=== PATIENT | female | born 1970 | race Caucasian/White ===

== ENCOUNTER → 2017-05-24 | Outpatient (CLI) | payer OTHER, BC ==
[~2017-05-24] MED LIST: DIPH-416 PO; FLUT0.15 NAE; GADAVIST IV PRN; IBUP-1050 PO; MOME110A INH
--- NOTE | 2017-05-24 08:51 | DIAGNOSTIC IMAGING REPORT ---
MRI THE PELVIS WITHOUT A WITH GADOLINIUM CLINICAL HISTORY: FIBROID UTERUS menorrhagia COMPARISON STUDY: No previous studies for comparison. FINDINGS: Imaging was performed in the sagittal axial and coronal planes, before and after the administration of 8 cc of intravenous Gadavist The endometrium measures 8 mm in diameter. There are several nabothian gland cyst present. No ovarian masses are visualized. There is an 8 cm left-sided uterine fibroid. There is no pathologic adenopathy. There are no suspicious areas of marrow replacement. IMPRESSION: 1. 8 cm left-sided uterine fibroid 2. No pathologic ovarian masses identified 3. No evidence of pathologic adenopathy Electronically signed by: Tomas Nuno M.D. 05/24/2017 8:50 AM Dictated Date/Time: 05/24/2017 8:45 AM
[2017-05-24 11:25] LABS: BLOOD UREA NITROGEN 9 mg/dl (7-18); CALCIUM 9.4 mg/dl (8.5-10.1); CARBON DIOXIDE 27 mmol/L (21-32); CHOLESTEROL 165 mg/dl (0-200); CREATININE 0.86 mg/dl (0.60-1.20); GLUCOSE 87 mg/dl (70-99); POTASSIUM 4.2 mmol/L (3.5-5.1); SODIUM 139 mmol/L (136-145)
[2017-05-24 11:35] LABS: LDL CHOLESTEROL CALCULATED 94 mg/dl
== END | disposition home or self-care (01) ==
LOC: C.MRIBC 07:29
PROVIDERS: ATTEND Obstetrics & Gynecology
DX: D25.9 Leiomyoma of uterus, unspecified (principal); Z87.42 Personal history of other diseases of the female genital tract; Z00.00 Encounter for general adult medical examination without abnormal findings

== ENCOUNTER → 2017-05-29 | Outpatient (CLI) | payer OTHER, BC ==
[~2017-05-29] MED LIST changes: -GADAVIST IV PRN
--- NOTE | 2017-05-30 08:02 | MAMMOGRAPHY REPORT ---
BILATERAL DIGITAL SCREENING MAMMOGRAM TOMOSYNTHESIS WITH CAD: 05/29/2017 CLINICAL HISTORY: Routine screening. Patient has no complaints. TECHNIQUE: Breast tomosynthesis in addition to standard 2D mammography was performed. Current study was also evaluated with a Computer Aided Detection (CAD) system. COMPARISON: Comparison is made to exams dated: 10/07/2015 ultrasound, 10/07/2015 mammogram, 11/10/2012 ultrasound, 11/10/2012 mammogram, 05/12/2012 mammogram, and 05/12/2012 ultrasound - [facility]. BREAST COMPOSITION: The tissue of both breasts is heterogeneously dense, which may obscure small mas ses. FINDINGS: No suspicious masses, calcifications, or areas of architectural distortion are noted in ei ther breast. There has been no significant interval change compared to prior exams. IMPRESSION: ACR BI-RADS CATEGORY 1: NEGATIVE There is no mammographic evidence of malignancy. A 1 year screening mammogram is recommended. The pa tient will receive written notification of the results. Approximately 10% of breast cancers are not detected with mammography. A negative mammographic report should not delay biopsy if a clinically suggestive mass is present. Neva Mcgill M.D. /:05/29/2017 09:13:27 Machine Stapler: Angi Kohler, [facility] letter sent: Normal 1/2 BI-RADS Code: ACR BI-RADS Category 1: Negative
== END | disposition home or self-care (01) ==
LOC: C.MAMM 08:35
PROVIDERS: ATTEND Internal Medicine
DX: Z12.31 Encounter for screening mammogram for malignant neoplasm of breast (principal)

== ENCOUNTER 2019-08-28 21:43 | Observation (INO) ==
[2019-08-28] MEDS ORDERED: MoRPHine SULFATE 4 MG/ML 1 ML CARP\\VIAL IV STA (22:31)
[2019-08-28] MEDS ORDERED: ONDANSETRON INJ 2 MG/ML 2 ML VIAL IV STA (22:31)
--- NOTE | 2019-08-28 22:37 | Emergency Department Note ---
History of Present Illness General Chief complaint: Pain (Generalized) Stated complaint: ABD PAIN, NECK PAIN, SHOULDER PAIN Time Seen by Provider: 08/28/19 22:23 History of Present Illness This is a 41-year-old female presenting to the emergency department for evaluation of right shoulder and right upper quadrant abdominal pain. The patient states that she ate dinner around 6 PM, including ribs, Maori fries, and spaghetti. Around 630pm she started having a spasm-like sensation in her right side neck into her right side shoulder. This has persisted throughout the past 3 to 4 hours, and now includes right upper quadrant abdominal/right lower chest wall pain. The patient considers herself usually healthy with past abdominal surgery for colectomy following ulcerative colitis. She is on control. The patient does not report having a fever at home. No nausea or vomiting. She rates her current discomfort a 6/10, crampy, nonradiating. Home Medications Home Medications Medication Instructions Recorded Confirmed Type norethindrone acetate 5 mg tablet 5 mg PO DAILY 05/13/19 08/28/19 History diphenoxylate-atropine 2.5 See Rx Instructions .ROUTE 05/14/19 08/28/19 Rx mg-0.025 mg tablet .COMPLEX PRN #300 tab buspirone 10 mg tablet 10 mg PO TID PRN #270 tab 08/03/19 08/28/19 Rx escitalopram oxalate 10 mg tablet 10 mg PO DAILY #90 tab 08/05/19 08/28/19 Rx mometasone [Asmanex Twisthaler] 1 inh INHALATION Q12H 08/28/19 08/28/19 History Allergies Allergy/AdvReac Type Severity Reaction Status Date / Time Cephalosporins Allergy Mild RASH Verified 08/28/19 23:15 Cipro Allergy Unknown hives Verified 02/05/16 14:02 ciprofloxacin Allergy Unknown hives Verified 08/28/19 23:15 metronidazole Allergy Unknown UNKNOWN Unverified 08/28/19 23:15 Penicillins Allergy Unknown Unknown Verified 08/28/19 23:15 Past Med/Surg History Medical History Chronic diarrhea (Chronic) Precordial chest pain (Inactive) Uterine fibroid (Chronic) Surgical History History of colectomy History of colonoscopy History of sigmoidoscopy History of tonsillectomy History of tubal ligation Family History (Updated 05/14/19 @ 10:01 by Zulay Lewis) Grandmother (Maternal) Breast cancer Grandmother (Paternal) Diabetes Grandfather (Maternal) Myocardial infarction Social History (Updated 05/14/19 @ 10:02 by Zulay Lewis) marital status: Current Living Situation: Spouse and Family Current Living Situation Comment: 2 boys current occupational status: employed Feels Safe at Home: Yes Smoking Status: Never smoker Hx Alcohol Use: Yes Alcohol Intake Frequency: Holidays/Special Occasions Hx Substance Use: No Dental Care, Regularly: Yes Physical Activity Frequency: 5-6 Times per Week Seatbelt Use: always Sunscreen Use: Yes Review of Systems A total of 10 systems reviewed and were otherwise negative Physical Exam Vital Signs Vital Signs - 24 hr 08/28/19 21:44 08/28/19 23:43 08/29/19 02:28 Temperature 37.6 C H Temperature Source Oral Pulse Rate 107 H Pulse Rate [Right Finger] 93 H Respiratory Rate 22 16 Respiratory Effort / Characteristics Non-Labored Spontaneous Respiratory Depth Normal Respiratory Pattern Regular Blood Pressure 143/87 H Blood Pressure [Right Arm] 144/87 H 133/71 Blood Pressure Mean 105 Blood Pressure Mean [Right Arm] 106 91 Blood Pressure Position Sitting Blood Pressure Position [Right Arm] Lying Pulse Oximetry 96 97 Oxygen Delivery Method Room Air Room Air Sepsis Recent Fever Within 48 Hours Yes Sepsis New/Unexplained Change in Mental Status No Sepsis Action Taken by Nursing No Action Required 08/29/19 04:00 Temperature Temperature Source Pulse Rate Pulse Rate [Right Finger] Respiratory Rate Respiratory Effort / Characteristics Respiratory Depth Respiratory Pattern Blood Pressure Blood Pressure [Right Arm] 117/70 Blood Pressure Mean Blood Pressure Mean [Right Arm] 85 Blood Pressure Position Blood Pressure Position [Right Arm] Pulse Oximetry 97 Oxygen Delivery Method Room Air Sepsis Recent Fever Within 48 Hours Sepsis New/Unexplained Change in Mental Status Sepsis Action Taken by Nursing VITALS: Vitals are noted on the nurse's note and reviewed by myself. Vital signs stable. GENERAL: Well-developed, well-nourished, white female who appears moderately uncomfortable on presentation HEAD: Normocephalic atraumatic. EARS: External ear normal. External auditory canals clear, tympanic membranes pearly you without erythema or effusion bilaterally. EYES: Pupils equal round and reactive to light and accommodation. Conjunctivae without injection, sclerae without icterus. Extraocular movements intact. NOSE: Patent, turbinates without inflammation or discharge. MOUTH: Mucous membranes moist. Tonsils are not enlarged. Pharynx without erythema, blood, or exudate. Uvula midline. Airway patent. NECK: Supple without nuchal rigidity. No lymphadenopathy. No thyromegaly. Cervical spine is nontender. HEART: Regular rate and rhythm without murmurs gallops or rubs. LUNGS: Clear to auscultation bilaterally without wheezes, rales or rhonchi. No retractions or accessory muscle use. ABDOMEN: Positive normal bowel sounds x 4. Soft with mild upper quadrant tenderness on palpation. No CVA tenderness. No rebound or guarding. MUSCULOSKELETAL: No muscle atrophy, erythema, or edema noted. Full range of motion in all extremities. SKIN: The skin was without rashes, erythema, edema, or bruising. Capillary refill less than 2 seconds. No rash in area of reported discomfort. Course Administered Medications Ioversol (Optiray 320 125ml) 119 ml IV ONCE PRN PRN Reason: Interaction Checking Stop: 09/02/19 02:12 Last Admin: 08/29/19 02:13 Dose: 119 ml Documented by: [id number] Discontinued Medications Sodium Chloride (Nss 1000ml) 1,000 mls @ 999 mls/hr IV .Q1H1M MALI Stop: 08/28/19 23:45 Last Infusion: 08/28/19 23:55 Dose: 0 mls/hr Documented by: [id number] Admin: 08/28/19 22:48 Dose: 999 mls/hr Documented by: [id number] Morphine Sulfate (Morphine Sulfate) 4 mg IV NOW STA Stop: 08/28/19 22:32 Last Admin: 08/28/19 22:47 Dose: 4 mg Documented by: [id number] Ondansetron HCl (Zofran) 4 mg IV NOW STA Stop: 08/28/19 22:32 Last Admin: 08/28/19 22:47 Dose: 4 mg Documented by: [id number] Critical Care Time I have personally spent greater than 38 minutes of critical care time in the direct management of this patient. This includes bedside care, interpretation of diagnostic studies, and testing, discussion with consultants, patient, and family members, and other required patient management activities. This 38 min utes is in excess of all separately billable procedures. Medical Decision Making Differential Diagnosis Differential diagnosis: Etiologies such as biliary colic, cholecystitis, hepatitis, pancreatitis, cardiac disease, pancreatitis, gastritis, peptic ulcer disease, appendicitis, cystitis, diverticulitis, mesenteric ischemia, inflammatory bowel disease, ileus, bowel obstruction, testicular/adnexal torsion, aortic pathology, shingles, as well as others were considered Laboratory Data Result diagrams: 08/28/19 22:40 08/28/19 22:40 Lab Results 08/28/19 08/28/19 08/28/19 Range/Units 22:40 22:40 22:40 WBC 13.04 H (4.8-10.8) K/uL RBC 4.67 (4.2-5.4) M/uL Hgb 14.5 (12.0-16.0) g/dL Hct 42.1 (37-47) % MCV 90.1 (80-100) fL MCH 31.0 (25-34) pg MCHC 34.4 (32-36) g/dL RDW Std Deviation 42.5 (36.4-46.3) fL RDW Coeff of Susi 13.0 (11.5-14.5) % Plt Count 255 (130-400) K/uL MPV 9.9 (7.4-10.4) fL Immature Gran % (Auto) 0.4 % Neut % (Auto) 80.0 % Lymph % (Auto) 11.2 % [place] % (Auto) 7.4 % Eos % (Auto) 0.8 % Baso % (Auto) 0.2 % Immature Gran # (Auto) 0.05 H (0.00-0.02) K/uL Neut # (Auto) 10.45 H (1.4-6.5) K/uL Lymph # (Auto) 1.46 (1.2-3.4) K/uL [place] # (Auto) 0.96 H (0.11-0.59) K/uL Eos # (Auto) 0.10 (0-0.5) K/uL Baso # (Auto) 0.02 (0-0.2) K/uL PT INR APTT PTT Ratio Sodium 137 (136-145) mmol/L Potassium 3.5 (3.5-5.1) mmol/L Chloride 104 (98-107) mmol/L Carbon Dioxide 28 (21-32) mmol/L Anion Gap 5.0 (3-11) BUN 17 (7-18) mg/dl Creatinine 1.25 H (0.6-1.2) mg/dl Est Cr Clr Drug Dosing 59.9 ml/min Est GFR ( Amer) 58.9 Est GFR (Non-Af Amer) 50.8 BUN/Creatinine Ratio 13.8 (10-20) Glucose 109 H (70-99) mg/dl Calcium 9.2 (8.5-10.1) mg/dl Total Bilirubin 0.4 (0.2-1) mg/dl AST 11 L (15-37) U/L ALT 27 (12-78) U/L Alkaline Phosphatase 78 (45-117) U/L Troponin I < 0.015 (0-0.045) ng/ml Total Protein 7.9 (6.4-8.2) gm/dl Albumin 3.7 (3.4-5.0) gm/dl Globulin 4.1 H (2.5-4.0) gm/dl Albumin/Globulin Ratio 0.9 (0.9-2) Lipase 121 (73-393) U/L Urine Color Yellow Urine Appearance Cloudy A (Clear) Urine pH 7.5 (4.5-7.5) Ur Specific [place] 1.026 (1.000-1.030) Urine Protein Negative (Negative) Urine Glucose (UA) Negative (Negative) Urine Ketones Trace H (Negative) Urine Blood Negative (Negative) Urine Nitrite Negative (Negative) Urine Bilirubin Negative (Negative) Urine Urobilinogen Negative (Negative) Ur Leukocyte Esterase 1+ H (Negative) Urine WBC (Auto) 5-10 H (0-5) /hpf Urine RBC (Auto) 5-10 H (0-4) /hpf U Hyaline Cast (Auto) 1-5 (0-5) /lpf U Epithel Cells (Auto) >30 H (0-5) /lpf Urine Bacteria (Auto) 1+ H (Negative) Influenza Type A (PCR) (Neg) Influenza Type B (PCR) (Neg) 08/28/19 08/29/19 Range/Units 22:40 01:46 WBC (4.8-10.8) K/uL RBC (4.2-5.4) M/uL Hgb (12.0-16.0) g/dL Hct (37-47) % MCV (80-100) fL MCH (25-34) pg MCHC (32-36) g/dL RDW Std Deviation (36.4-46.3) fL RDW Coeff of Susi (11.5-14.5) % Plt Count (130-400) K/uL MPV (7.4-10.4) fL Immature Gran % (Auto) % Neut % (Auto) % Lymph % (Auto) % [place] % (Auto) % Eos % (Auto) % Baso % (Auto) % Immature Gran # (Auto) (0.00-0.02) K/uL Neut # (Auto) (1.4-6.5) K/uL Lymph # (Auto) (1.2-3.4) K/uL [place] # (Auto) (0.11-0.59) K/uL Eos # (Auto) (0-0.5) K/uL Baso # (Auto) (0-0.2) K/uL PT Cancelled INR Cancelled APTT Cancelled PTT Ratio Cancelled Sodium (136-145) mmol/L Potassium (3.5-5.1) mmol/L Chloride (98-107) mmol/L Carbon Dioxide (21-32) mmol/L Anion Gap (3-11) BUN (7-18) mg/dl Creatinine (0.6-1.2) mg/dl Est Cr Clr Drug Dosing ml/min Est GFR ( Amer) Est GFR (Non-Af Amer) BUN/Creatinine Ratio (10-20) Glucose (70-99) mg/dl Calcium (8.5-10.1) mg/dl Total Bilirubin (0.2-1) mg/dl AST (15-37) U/L ALT (12-78) U/L Alkaline Phosphatase (45-117) U/L Troponin I (0-0.045) ng/ml Total Protein (6.4-8.2) gm/dl Albumin (3.4-5.0) gm/dl Globulin (2.5-4.0) gm/dl Albumin/Globulin Ratio (0.9-2) Lipase (73-393) U/L Urine Color Urine Appearance (Clear) Urine pH (4.5-7.5) Ur Specific [place] (1.000-1.030) Urine Protein (Negative) Urine Glucose (UA) (Negative) Urine Ketones (Negative) Urine Blood (Negative) Urine Nitrite (Negative) Urine Bilirubin (Negative) Urine Urobilinogen (Negative) Ur Leukocyte Esterase (Negative) Urine WBC (Auto) (0-5) /hpf Urine RBC (Auto) (0-4) /hpf U Hyaline Cast (Auto) (0-5) /lpf U Epithel Cells (Auto) (0-5) /lpf Urine Bacteria (Auto) (Negative) Influenza Type A (PCR) Neg for Influ A (Neg) Influenza Type B (PCR) Neg for Influ B (Neg) Imaging Data Radiologist's Impression: Preliminary Findings Only See Final Report For Complete Findings US GALLBLADDER: Limited visualization of the pancreas. Underdistended or contracted gallbladder with apparent mild wall thickening. No gallstones. No biliary ductal dilatation. Negative sonographic Rilye's sign. Preliminary Findings Only See Final Report For Complete Findings CT ABDOMEN & PELVIS Without Contrast: Trace right pleural fluid/pleural thickening. Mild ground glass opacities at the right lung base. Could be from pneumonia or pulmonary infarct. CTA of the chest can further assess if clinically appropriate No radiodense gallstones or pancreatitis. No renal calculi or obstructive changes. Previous bowel surgery. Nonobstructive bowel gas pattern. Appendix not identified. 7.2 cm solid-appearing mass lesion left lower pelvis, could be an exophytic fibroid or adnexal mass lesion. Preliminary Findings Only See Final Report For Complete Findings CT CHEST With Contrast: Study is positive for bilateral small pulmonary emboli predominantly to the lung bases. Trace right pleural effusion and pulmonary infarct. Nodular infiltrate in right upper lobe. ECG Data Attestation: I personally reviewed and interpreted this ECG as follows: Indication: + abdominal pain Additional Comments: Normal sinus rhythm @[address] elevation or ectopy Normal ECG When compared with ECG of 05-FEB-2016 14:06, No significant change was found MDM Narrative Physical exam and history were performed. Nursing notes, EMR, and Medication List were personally reviewed. Patient appears to have right side shoulder and neck pain, as well as right side upper abdominal discomfort. Her symptoms seem to correlate with diaphragmatic irritation, and her initial presentation was concern for her gallbladder. She is minimally febrile but with tachycardia on vitals. IV access was established and labs were obtained. The patient was given IV fluids, IV morphine, and IV Zofran for comfort. She was made n.p.o. The patient's blood work is as above and was reviewed. She has a minimally elevated white blood cell count of 13,000. She does not have a significant anemia, bandemia, or gross electrolyte imbalance. Lipase and transaminases are not diagnostic. Urine is with esterase and bacteria, with culture pending. Of note she is currently without any UTI symptoms. Influenza swab was performed an d negative. The patient's ultrasound was reviewed by myself and radiology. They had difficulty fully identifying the gallbladder on ultrasound, and there may be some mild wall thickening. Because of concern of another etiology I did elect for CT scan of the abdomen and pelvis. CT of the abdomen and pelvis was also reviewed, and did not see findings in the area to explain her symptoms within th e belly. The lower lung mai on the abdomen and pelvis CT are concerning for possible pulmonary etiology. CT angiogram of the chest was then performed, and does reveal multiple bilateral peripheral pulmonary emboli. This does seem to coincide with her symptoms and would explain the diaphragmatic irritation concern. The patient does not seem to have any history herself to put her at high risk for pulmonary emboli. She is on control. Evidently her mother had a PE, but this might have been provoked due to travel history. The patient was started on heparin bolus and drip here in the ER. The case was discussed with the on-call hospitalist who agreed to evaluate her here in the ER. Please see their dictation for further patient course, plan, and disposition. The chart was completed utilizing [employer] Speech Voice Recognition Software. Grammatical errors, random word insertions, pronoun errors, and incomplete sentences are an occasional consequence of this system due to software limitations, ambient noise, and hardware issues. Any formal questions or concerns about the content, text, or information contained within the body of this dictation should be directly addressed to the provider for clarification. . Impression & Plan Bilateral pulmonary embolism Discharge Plan Visit Data Chief Complaint: Pain (Generalized) Stated Complaint: ABD PAIN, NECK PAIN, SHOULDER PAIN ED Provider: [facility] ED Midlevel Provider: Flip Pena Discharge Problem: Bilateral pulmonary embolism Forms Stand Alone Forms: My [facility] Prescriptions Prescriptions: No Action buspirone 10 mg tablet 10 mg PO TID PRN (Reason: anxiety) Qty: 270 RF: 3 escitalopram oxalate 10 mg tablet 10 mg PO DAILY Qty: 90 RF: 3 norethindrone acetate 5 mg tablet 5 mg PO DAILY RF: 0 diphenoxylate-atropine 2.5-0.025 mg tablet See Rx Instructions .ROUTE .COMPLEX PRN (Reason: diarrhea) Qty: 300 RF: 5 Asmanex Twisthaler 220 mcg/ actuation (60) Aerosol Powdr Breath Activated 1 inh INHALATION Q12H RF: 0 Referrals Referrals: Blaine Jennings MD [Primary Care Provider] -
[2019-08-28] MEDS ORDERED: SODIUM CHLORIDE 0.9% 1000ML 1,000 ML IV SCH (22:45)
[2019-08-28 22:49] LABS: Basophils # (auto) 0.02 K/uL (0-0.2); Basophils % (auto) 0.2 %; Eosinophils % (auto) 0.8 %; Hematocrit (blood only) 42.1 % (37-47); Hemoglobin 14.5 g/dL (12.0-16.0); Immature Granulocytes # (auto) 0.05 K/uL (0.00-0.02); Immature Granulocytes % (auto) 0.4 %; Lymphocytes # (auto) 1.46 K/uL (1.2-3.4); Lymphocytes % (auto) 11.2 %; Mean Corpuscular Hgb Conc 34.4 g/dL (32-36); Mean Corpuscular Volume 90.1 fL (80-100); Mean Platelet Volume 9.9 fL (7.4-10.4); Monocytes # (auto) 0.96 K/uL (0.11-0.59); Monocytes % (auto) 7.4 %; Neutrophils # (auto) 10.45 K/uL (1.4-6.5); Platelet Count 255 K/uL (130-400); RDW Standard Deviation 42.5 fL (36.4-46.3); Red Blood Count 4.67 M/uL (4.2-5.4); White Blood Count 13.04 K/uL (4.8-10.8)
[2019-08-28 22:52] LABS: Appearance Urine Cloudy (Clear); Bacteria Urine Automated 1+ (Negative); Bilirubin Urine Negative (Negative); Blood Urine Negative (Negative); Color Urine Yellow; Epithelial Cell Urine Auto >30 /lpf (0-5); Glucose Urine UA Negative (Negative); Ketones Urine Trace (Negative); Leukocyte Esterase Urine 1+ (Negative); Nitrite Urine Negative (Negative); Protein Urine Negative (Negative); Specific Gravity Urine 1.026 (1.000-1.030); Urobilinogen Urine Negative (Negative); pH Urine 7.5 (4.5-7.5)
[2019-08-28 23:10] LABS: Alanine Aminotransferase 27 U/L (12-78); Albumin Level 3.7 gm/dl (3.4-5.0); Aspartate Aminotransferase 11 U/L (15-37); BUN Creatinine Ratio 13.8 (10-20); Blood Urea Nitrogen 17 mg/dl (7-18); Calcium 9.2 mg/dl (8.5-10.1); Carbon Dioxide 28 mmol/L (21-32); Chloride 104 mmol/L (98-107); Creatinine Clr Calc Pharmacy 59.9 ml/min; Est GFR (African American) 58.9; Est GFR (Non-African American) 50.8; Glucose 109 mg/dl (70-99); Lipase 121 U/L (73-393); Potassium 3.5 mmol/L (3.5-5.1); Sodium 137 mmol/L (136-145)
[2019-08-28 23:15] LABS: Albumin Globulin Ratio 0.9 (0.9-2); Alkaline Phosphatase 78 U/L (45-117); Bilirubin,Total 0.4 mg/dl (0.2-1); Globulin 4.1 gm/dl (2.5-4.0); Total Protein 7.9 gm/dl (6.4-8.2); Troponin I < 0.015 ng/ml (0-0.045)
[2019-08-29] MEDS ORDERED: OPTIRAY 320 125ml IV PRN (02:13)
[2019-08-29 02:33] LABS: Influenza A virus by PCR Neg for Influ A (Neg); Influenza B virus by PCR Neg for Influ B (Neg)
[2019-08-29] MEDS ORDERED: HEPARIN SODIUM/DEXTROSE 25,000 UNITS/500 ML BAG IV SCH (03:30)
[2019-08-29] MEDS ORDERED: Heparin BOLUS **ED Use Only IV STA (03:50)
--- NOTE | 2019-08-29 04:18 | History & Physical Report ---
Date of Service August 29, 2019 Assessment & Plan (1) Bilateral pulmonary embolism: Patient is a 49 year old female with PMHx of UC, Asthma, and Anxiety who presents with worsening R shoulder pain with deep inhalation, found to have bilateral PE's noted on CT. ED Course: Heparin Drip w/ bolus, Morphine 4mg IV, Zofran 4mg IV, NSS 1L bolus Bilateral Pulmonary Embolism -Chest CT showed B/L distal PE. Also of note is a Nodular infiltrate in the RUL, awaiting final read. -Likely provoked from use of oral contraceptives -No family history of DVT or PE's, minimal in patients history to suggest DVT formation via trauma or travel -Continue Heparin drip, will likely transition to a NOAC in AM -DC Oral contraceptive -B/L LE ultrasound ordered -Can consider further hypercoagulability work up in future if patient has another case of DVT or PE while off of OCP Uterine Fibroid -Noted as as 7.2 cm mass in the left lower pelvis on Ab/Pelv CT -Patient states that this has been a chronic and stable thing for her and that she was to have another ultrasound for it in the near future Anxiety -Continue Buspirone -Continue Lexapro Asthma -Continue Mometasone UC -Continue Lamotil PRN Dispo: Med/Surg Tele FEN: Regular Diet, NSS +20meqK 80ml/hr DVT: Heparin drip Code: Full (2) Situational anxiety: (3) Panic anxiety syndrome: (4) Uterine fibroid: (5) Ulcerative colitis: (6) Asthma: History of Present Illness Chief Complaint: Shoulder Pain Primary Care Provider: Blaine Jennings MD Patient is a 49 year old female with PMHx of UC, Asthma, and Anxiety who presents with worsening R shoulder pain with deep inhalation. Patient notes that her pain started earlier in the evening and had worsened over the past 3-4 hours. Patient describes the pain as a spasms in her R shoulder leading into the R side of her neck. She had used essential oils and heat without relief. Patient notes that she is a relatively healthy person, exercises regularly, and has only had abdominal surgery in the past secondary to her ulcerative colitis. Her only medications include Buspirone and Lexapro for her anxiety, Lamotil for her UC, Mometasone for her Asthma, and oral control for her menorrhagia. She states she had been taking control for roughly 2 years now. She also notes that she does note smoke or use drugs. She has an occasional drink. Minimal recent travel (2.5 hours to [place]) for the past 3 weeks. She does state that her mother had a PE in her 60's, but it was after she had been traveling by car for extended hours. Patient otherwise denies any family history of coagulopathies. Allergies Allergy/AdvReac Type Severity Reaction Status Date / Time Cephalosporins Allergy Mild RASH Verified 08/28/19 23:15 Cipro Allergy Unknown hives Verified 02/05/16 14:02 ciprofloxacin Allergy Unknown hives Verified 08/28/19 23:15 metronidazole Allergy Unknown UNKNOWN Unverified 08/28/19 23:15 Penicillins Allergy Unknown Unknown Verified 08/28/19 23:15 Home Medications Home Medications Medication Instructions Recorded Confirmed Type norethindrone acetate 5 mg tablet 5 mg PO DAILY 05/13/19 08/28/19 History diphenoxylate-atropine 2.5 See Rx Instructions .ROUTE 05/14/19 08/28/19 Rx mg-0.025 mg tablet .COMPLEX PRN #300 tab buspirone 10 mg tablet 10 mg PO TID PRN #270 tab 08/03/19 08/28/19 Rx escitalopram oxalate 10 mg tablet 10 mg PO DAILY #90 tab 08/05/19 08/28/19 Rx mometasone [Asmanex Twisthaler] 1 inh INHALATION Q12H 08/28/19 08/28/19 History Past Med/Surg History Medical History Chronic diarrhea (Chronic) Precordial chest pain (Inactive) Uterine fibroid (Chronic) Surgical History History of colectomy History of colonoscopy History of sigmoidoscopy History of tonsillectomy History of tubal ligation Family History (Updated 05/14/19 @ 10:01 by Zulay Lewis) Grandmother (Maternal) Breast cancer Grandmother (Paternal) Diabetes Grandfather (Maternal) Myocardial infarction Social History (Updated 05/14/19 @ 10:02 by Zulay Lewis) marital status: Current Living Situation: Spouse and Family Current Living Situation Comment: 2 boys current occupational status: employed Feels Safe at Home: Yes Smoking Status: Never smoker Hx Alcohol Use: Yes Alcohol Intake Frequency: Holidays/Special Occasions Hx Substance Use: No Dental Care, Regularly: Yes Physical Activity Frequency: 5-6 Times per Week Seatbelt Use: always Sunscreen Use: Yes Review of Systems Constitutional: no fever, no chills and no weakness Eyes: no worsening vision Ear, Nose, Mouth, Throat: no dizziness Respiratory: + pain on inspiration (R shoulder pain with deep inspiration ); no cough, no dyspnea and no dyspnea on exertion Cardiovascular: no chest pain, no dyspnea, no dyspnea at rest, no dyspnea on exertion, no palpitations and no lightheadedness Gastrointestinal: no abdominal pain, no nausea, no vomiting, no constipation and no diarrhea/loose stools Genitourinary: no dysuria, no urinary frequency and no hematuria Musculoskeletal: + back pain and + neck pain Integumentary: no rash Neurologic: no localized weakness and no headache(s) Psychiatric: no behavioral changes Physical Exam Constitutional: WD/WN, vitals as above Eyes: PERRL, conjunctivae normal, anicteric sclerae ENMT: external ear and nose normal, oropharynx normal Neck: trachea midline, no thyromegaly Respiratory: normal respiratory effort, lungs clear to auscultation Cardiovascular: RRR, no murmur, no edema Gastrointestinal (Abdomen): normal bowel sounds, soft, nontender, no hepatosplenomegaly Musculoskeletal: no cyanosis or clubbing, extremities motor strength 5/5 Skin: no rashes, warm and dry Neurologic: PERRL, EOMI, accommodation nl, no face palsy, no dysarthria Psychiatric: A+Ox3, euthymic affect Results & Data Results & Data ([facility]) Vital Signs (Past 12 Hours) Vital Signs Temp Pulse Pulse Resp BP BP Pulse Ox 08/29/19 02:28 93 H 16 133/71 97 08/28/19 23:43 144/87 H 08/28/19 21:44 37.6 C H 107 H 22 143/87 H 96 Supervising Physician Co-Signing Physician Notes Patient seen and examined, chart reviewed, case discussed with Dr. Rahman and I agree with his assessment and plan as documented above. Briefly, patient is a 49yo C female presenting with bilateral PE. On exam she is afebrile, HD stable, NAD, adequate oxygenation on room air with no distress Gen - non-toxic, anxious in appearance HEENT - NC/AT, PERRL, EOMI, MMM, Neck supple Heart - +S1/S2, regular, no m/r/g Lungs - CTA Abd - +BS, soft, NT/ND Ext - No edema, redness, calf tenderness Neuro - no gross deficits Labs and images reviewed Assessment/Plan: 49yo C female with bilateral PEs. No previous clotting. Mother had a clot in her 60's. Etiology unclear - patient is on OCP for uterine bleeding which may be contributing to hyerpcoagualability. -Heparin gtt to NOAD -Recommend discontinuing OCP -Remainder of plan as above PG Care Time/CCT Total # of Minutes Spent Total Time Spent with Patient: Total time spent is greater than 50% in coordination of care (as documented) at patient's floor/unit and/or counseling patient: Coding Level of Care Code 34152 OBS Care - Level 2 Diagnoses Bilateral pulmonary embolism I26.99 Situational anxiety F41.8 Panic anxiety syndrome F41.0 Uterine fibroid D25.9 Ulcerative colitis K51.90 Asthma J45.909 Resident Activity Tracking Resident Involvement: Resident Care Provided Care Provided: Adult Hospital Medicine
[2019-08-29 06:24] LABS: Partial Thromboplastin Time 27.1 Seconds (21.0-31.0); Prothrombin Time 10.1 Seconds (9.0-12.0)
--- NOTE | 2019-08-29 06:44 | Electrocardiogram Report ---
Test Reason : Blood Pressure : / mmHG Vent. Rate : 094 BPM Atrial Rate : 094 BPM P-R Int : 176 ms QRS Dur : 078 ms QT Int : 356 ms P-R-T Axes : 024 077 053 degrees QTc Int : 445 ms Normal sinus rhythm Normal ECG When compared with ECG of 05-FEB-2016 14:06, No significant change was found Confirmed by Natanael Mcnally ([id number]) on 08/29/2019 6:44:09 AM Referred By: REFERRED SELF Confirmed By:Natanael Mcnally
--- NOTE | 2019-08-29 07:18 | XRay Report ---
XR chest 1V portable CLINICAL HISTORY: Right-sided chest pain COMPARISON STUDY: 02/05/2016 FINDINGS: The cardiac and mediastinal contours are normal. There is no evidence of focal pulmonary co nsolidation. There is no evidence of failure. No pleural effusions are visualized.[No pneumothorax is visualized. IMPRESSION: No active disease in the chest. ACT 112: Negative or not required by law. Electronically signed by: Tmoas Nuno M.D. 08/29/2019 7:16 AM
--- NOTE | 2019-08-29 07:37 | CT Scan Report ---
CT SCAN OF THE ABDOMEN AND PELVIS WITHOUT CONTRAST CLINICAL HISTORY: Abdominal pain. Colon wall thickening on prior ultrasound. COMPARISON STUDY: Ultrasound study dated 08/28/2019 TECHNIQUE: CT scan of the abdomen and pelvis was performed from the lung bases to the proximal femurs . Images are reviewed in the axial, sagittal, and coronal planes. IV contrast was not administered fo r this examination. A dose lowering technique was utilized adhering to the principles of ALARA. CT DOSE: 775.71 mGy.cm FINDINGS: Lower chest: Dependent airspace opacities, statistically atelectatic. There is trace right pleural fl uid. Given the pain, the right pleural effusion, and the right basilar airspace opacities, pulmonary embolus cannot be excluded. Liver: The unenhanced liver is normal in size, contour, and attenuation. There is no intrahepatic kaitlyn iary ductal dilatation. Gallbladder: Unremarkable. Spleen: Normal in size and attenuation. Pancreas: Unremarkable. Adrenal glands: Unremarkable. Kidneys: No renal, ureteral, or bladder calculi are visualized. Bowel: There are postsurgical changes of a subtotal colectomy. There are no transition zones to indic ate bowel obstruction. No acute inflammatory changes are evident. Peritoneum: There is no intraperitoneal free air or abdominal ascites. Vasculature: The abdominal aorta is normal in course and caliber. Adenopathy: None. Pelvic viscera: The uterus is enlarged. There is a suspected 8 cm uterine fibroid. Skeletal structures: No destructive osseous lesions are seen. IMPRESSION: 1. Postsurgical changes of a subtotal colectomy 2. No evidence of bowel obstruction. No evidence of free air 3. No renal, ureteral or bladder calculi identified 4. 8 cm uterine mass likely representing a fibroid 5. Trace right pleural effusion. Minimal right basilar opacities, likely atelectatic. A pulmonary inf arct must also be considered given the history of pain in the trace right pleural effusion ACT 112: Negative or not required by law. Electronically signed by: Tomas Nuno M.D. 08/29/2019 7:35 AM
--- NOTE | 2019-08-29 07:41 | CT Scan Report ---
CT ANGIOGRAM OF THE CHEST CLINICAL HISTORY: Abnormal right lower lobe pulmonary findings on abdominal CT. Right lower lobe grou ndglass opacities. COMPARISON STUDY: Chest x-ray dated 08/28/2019. Chest CT dated 02/05/2016. Abdominal CT dated 08/29/2019 . TECHNIQUE: Following the IV administration of 119 cc of Optiray 320, CT angiogram of the chest was pe rformed from the upper abdomen to the thoracic inlet utilizing the pulmonary embolus protocol. Images are reviewed in the axial, sagittal, and coronal planes. 3-D MIPS images are created and assessed. I V contrast was administered without complication. A dose lowering technique was utilized adhering to the principles of ALARA. CT DOSE: 490.13 mGy.cm FINDINGS: Thyroid: Imaged portions of the thyroid gland are normal in size and attenuation. Thoracic aorta: The thoracic aorta is normal in caliber and demonstrates standard 3-vessel arch anato my. No dissection is seen. Pulmonary vasculature: The pulmonary trunk is normal in caliber. There are filling defects consistent with pulmonary emboli present within segmental and subsegmental branches of the right upper, right m iddle, right lower, and left lower lobe pulmonary arteries as above. Heart: The heart is normal in size and without pericardial effusion. Lungs and pleural spaces: There is a trace right pleural effusion. Groundglass opacities and atelecta sis are present at both lung bases, right greater than left. Patchy groundglass consolidation is iden tified in the right upper lobe, best seen on image #145. There is a 4 mm right middle lobe pulmonary nodule seen on image #96. This is been present dating back to 02/05/2016. Mediastinum: There is no mediastinal lymphadenopathy. Haven: Clear. Axillae: There is no axillary lymphadenopathy. Upper abdomen: Partially visualized upper abdominal viscera is within normal limits. Skeletal structures: No lytic or blastic bony lesions are seen. IMPRESSION: 1. Bilateral segmental and subsegmental pulmonary emboli as above. 2. There is a trace right pleural effusion with right basilar airspace opacities. This could represen t atelectasis, a mild infectious/inflammatory pneumonitis, and/or developing pulmonary infarct. 3. Patchy groundglass consolidation is seen in the right upper lobe. The appearance favors an infecti ous/inflammatory pneumonitis. ACT 112: Negative or not required by law. Electronically signed by: Polo Shipman M.D. 08/29/2019 7:39 AM
--- NOTE | 2019-08-29 07:43 | Ultrasound Report ---
ULTRASOUND RIGHT UPPER QUADRANT ABDOMEN CLINICAL HISTORY: Right upper quadrant abdominal pain. COMPARISON STUDY: No priors. TECHNIQUE: Real-time, grayscale, and color flow sonography of the right upper quadrant of the abdomen was performed. Images are reviewed in the transverse and longitudinal planes. FINDINGS: Liver: The liver is normal in size and echotexture. There is no intrahepatic biliary ductal dilatatio n. The main portal vein is patent. Gallbladder: The gallbladder is partially contracted but otherwise normal in appearance. No gallstone s are identified. There is no gallbladder wall thickening or pericholecystic fluid. A sonographic Mur phy's sign is reportedly absent. The common bile duct measures up to 0.2 cm in diameter. Pancreas: Visualized portions of the pancreatic head and body are normal in appearance. Right kidney: Survey images of the right kidney demonstrate normal size and echotexture. There is no hydronephrosis. Ascites: None. IMPRESSION: Unremarkable sonographic assessment of the right upper quadrant. No shadowing gallstones are identified. ACT 112: Negative or not required by law. Electronically signed by: Polo Shipman M.D. 08/29/2019 7:42 AM
[2019-08-29] MEDS ORDERED: NSS + 20MEQ KCL 20 MEQ/1,000 ML BAG IV SCH (07:49)
[2019-08-29] MEDS ORDERED: DIPHENOXYLATE/ATROPINE 2.5/0.025MG TAB PO PRN (07:49)
[2019-08-29] MEDS ORDERED: ESCITALOPRAM OXALATE 10 MG TAB PO SCH (09:00)
[2019-08-29] MEDS ORDERED: FLUTICASONE FUROATE 100MCG 14 PUFFS/INHALER INH SCH (09:00)
--- NOTE | 2019-08-29 11:03 | Ultrasound Report ---
ULTRASOUND BILATERAL LOWER EXTREMITY VENOUS CLINICAL HISTORY: Pulmonary emboli. COMPARISON STUDY: No priors. TECHNIQUE: Real-time, grayscale, and color Doppler sonography of the deep veins of the right and left lower extremity was performed from the inguinal crease to the calf. Compression and augmentation wer e utilized. FINDINGS: Right lower extremity: There is occlusive deep venous thrombosis identified in the popliteal vein. [place] perficial venous thrombus is noted in the lesser saphenous vein. The common femoral vein and superfic ial femoral vein are patent and normally compressible. The greater saphenous vein and the profunda fe cheryl vein at the junction with the common femoral vein are clear. The visualized calf veins are villatoro nt. Left lower extremity: There is no sonographic evidence of deep venous thrombosis in the left lower ex tremity. The common femoral, superficial femoral, and popliteal veins are patent and normally nadya sible. The greater saphenous vein and the profunda femoris vein at the junction with the common femor al vein are clear. The visualized calf veins are patent. IMPRESSION: 1. There is occlusive deep venous thrombosis identified in the right popliteal vein. 2. Superficial venous thrombus is seen within the lesser saphenous vein on the right. 3. There is no sonographic evidence of deep venous thrombosis in the left lower extremity. ACT 112: Negative or not required by law. Electronically signed by: Polo Shipman M.D. 08/29/2019 11:02 AM
[2019-08-29] MEDS ORDERED: RIVAROXABAN 15 MG TAB PO SCH (12:35)
[2019-08-29 12:39] LABS: Partial Thromboplastin Ratio 1.5; Partial Thromboplastin Time 41.7 Seconds (21.0-31.0)
--- NOTE | 2019-08-29 12:45 | Discharge Summary ---
Date of Service August 29, 2019 Admission HPI Per Admitting Provider Patient is a 49 year old female with PMHx of UC, Asthma, and Anxiety who presents with worsening R shoulder pain with deep inhalation. Patient notes that her pain started earlier in the evening and had worsened over the past 3-4 hours. Patient describes the pain as a spasms in her R shoulder leading into the R side of her neck. She had used essential oils and heat without relief. Patient notes that she is a relatively healthy person, exercises regularly, and has only had abdominal surgery in the past secondary to her ulcerative colitis. Her only medications include Buspirone and Lexapro for her anxiety, Lamotil for her UC, Mometasone for her Asthma, and oral control for her menorrhagia. She states she had been taking control for roughly 2 years now. She also notes that she does note smoke or use drugs. She has an occasional drink. Minimal recent travel (2.5 hours to [place]) for the past 3 weeks. She does state that her mother had a PE in her 60's, but it was after she had been traveling by car for extended hours. Patient otherwise denies any family history of coagulopathies. Admission Exam Per Admitting Provider As per admitting provider Constitutional: WD/WN, vitals as above Eyes: PERRL, conjunctivae normal, anicteric sclerae ENMT: external ear and nose normal, oropharynx normal Neck: trachea midline, no thyromegaly Respiratory: normal respiratory effort, lungs clear to auscultation Cardiovascular: RRR, no murmur, no edema Gastrointestinal (Abdomen): normal bowel sounds, soft, nontender, no hepatosplenomegaly Musculoskeletal: no cyanosis or clubbing, extremities motor strength 5/5 Skin: no rashes, warm and dry Neurologic: PERRL, EOMI, accommodation nl, no face palsy, no dysarthria Psychiatric: A+Ox3, euthymic affect Principal Diagnosis Bilateral pulmonary embolism Right popliteal DVT Discharge Exam General: awake, alert, no apparent distress Head: Normocephalic, atraumatic ENT: PERRL, EOMI, no pharyngeal exudate, mucous membranes moist Chest: Clear to auscultation, on room air, no adventitious breath sounds, + mild pleuritic pain with deep breaths Cardiac: Regular rate and rhythm, no murmur, no JVD, normal peripheral pulses, good capillary refill Abdominal: NABS x 4 quadrants, soft, nontender to palpation, no rebound, guarding or tenderness Extremities: Normal inspection, no peripheral edema or erythema, calfs nontender to palpation Psych: Normal mood and affect Neuro: AAO x 3, strength intact bilaterally and rated 5/5, no motor deficits, speech is clear, no peripheral sensory deficits Skin: no rash or erythema Discharge Data Allergies Allergy/AdvReac Type Severity Reaction Status Date / Time Cephalosporins Allergy Mild RASH Verified 08/28/19 23:15 Cipro Allergy Unknown hives Verified 02/05/16 14:02 ciprofloxacin Allergy Unknown hives Verified 08/28/19 23:15 metronidazole Allergy Unknown UNKNOWN Unverified 08/28/19 23:15 Penicillins Allergy Unknown Unknown Verified 08/28/19 23:15 Consultations 08/29/19 03:19 ED Decision to Admit Stat Ordered Studies 08/28/19 22:31 US gallbladder Urgent 08/29/19 00:38 CT abd pelvis wo con Urgent 08/29/19 02:03 CT angio chest PE protocol Urgent 08/29/19 07:49 US venous doppler LE Urgent Hospital Course (1) Bilateral pulmonary embolism: - CTPE reviewed showing bilateral segmental and subsegmental pulmonary em boli, trace right pleural effusion with right basilar airspace opacities, was likely a developing pulmonary infarct. She was started on a heparin drip then transitioned over to Xarelto prior to discharge. -Norethindrone was stopped, she has been using this for heavy menstrual bleeding, patient was counseled that she should expect to see increase in bleeding within the next 3 to 7 days however it is a contraindication to keep her on his this medication in the setting of PE. She was encouraged to follow- up with her [facility] within the next 1 to 2 weeks. -Patient did not require supplemental O2 upon discharge -Xarelto card was faxed to her pharmacy for cost savings. (2) Situational anxiety: (3) Panic anxiety syndrome: -Continue BuSpar 10 mg 3 times daily as needed -Continue Lexapro 10 mg daily (4) Uterine fibroid: -Already established with [facility] as an outpatient, seen on CT, follow-up ultrasound as outpatient (5) Ulcerative colitis: -History of such, stable (6) Asthma: -History of such, stable, no needs for supplemental O2 Total Time Total Time Spent Total Time Spent (In Minutes): 32 min Discharge Plan Discharge Items Patient Disposition: Home - Self-Care Reason For Visit: R SHOULDER PAIN, B/L PE Discharge Diagnosis: Pulmonary embolism Condition on Discharge: Good Activity: Resume your previous activity Lifting: Gradually increase as tolerated Bathing: No limitations Sexual Activity: When tolerated Exercise/Sports: Gradually increase as tolerated Exercise Comment: Avoid sitting for prolonged periods of time. Driving/Machine Use: No limitations Weightbearing: Full weightbearing Non-emergency contact: Primary Care Provider Call non-emergency contact if: you have any medication questions, your symptoms worsen and you have a fever Follow-up/Referrals: Blaine Jennings MD [Primary Care Provider] - Diet: Regular Addtl Attending Provider Instructions: You were admitted to [facility] due to shortness of breath and pain with deep breaths and diagnosed with pulmonary embolism (blood clot in the lungs) and a Right leg deep venous thrombosis (blood clot in the leg). During your stay here you were treated with supportive care, medications including intravenous heparin and your symptoms improved. Imaging studies which were completed include CT angiogram of the lungs and Ultrasound of the legs, and were abnormal showing the blood clots as described above. Contact your [facility] to discuss other mechanisms for stopping heavy bleeding. This may include Medications: Norethindrone was stopped! Do not take this medication because of the development of the clots. This is a contraindication to taking this medication. Because you were using this for heavy uterine bleeding, you can expect to see withdrawal bleeding within 3-7 days following the discontinuation of this medicine. Start taking xarelto as follows: 15 mg BID x 21 days, followed by 20 mg daily thereafter. You were given the first dose before leaving the hospital, take the next dose tomorrow morning on 08/29 with food. Continue taking all other medications as prescribed. Appointments: Follow up with PCP within 1-2 weeks, an appointment has been requested for you. Follow up with [facility] within 2-4 weeks, call the office to schedule an appointment. Pending Studies at Discharge: No Stand-Alone Forms: My [employer], Work/School Release (Inpt), Smoking Cessation Medications and DC Order Prescriptions: New Xarelto 15 mg tablet 15 mg PO BID 21 Days Qty: 42 RF: 0 Xarelto 20 mg tablet 20 mg PO DAILY Qty: 30 RF: 1 Continued buspirone 10 mg tablet 10 mg PO TID PRN (Reason: anxiety) Qty: 270 RF: 3 escitalopram oxalate 10 mg tablet 10 mg PO DAILY Qty: 90 RF: 3 diphenoxylate-atropine 2.5-0.025 mg tablet See Rx Instructions .ROUTE .COMPLEX PRN (Reason: diarrhea) Qty: 300 RF: 5 Asmanex Twisthaler 220 mcg/ actuation (60) Aerosol Powdr Breath Activated 1 inh INHALATION Q12H RF: 0 Discontinued norethindrone acetate 5 mg tablet 5 mg PO DAILY RF: 0 Discharge Orders: Discharge Order (Routine); Ordered 08/29/19 Ordered By: Laury Schultz Admission Data Admit Date/Time: 08/29/19 04:44 Attending Provider: Moreno Rios Admit Provider: Cely Dupont Primary Care Provider: Blaine Jennings Other Providers: Ceyl Dupont Other MT Date/Time DO NOT enter until pt leaves facility: 08/29/19 13:50 Coding Level of Care Code D/C Day Management >30 mins Diagnoses Bilateral pulmonary embolism I26.99 Situational anxiety F41.8 Panic anxiety syndrome F41.0 Uterine fibroid D25.9 Ulcerative colitis K51.90 Asthma J45.909
--- NOTE | 2019-08-29 14:15 | XCELERA ---
[id number]
== END 2019-08-29 13:50 | disposition home or self-care (01) ==
LOC: 2N 21:43 → ED 21:43 → SUATTDRO 08-29 04:44 → 2N 08-29 06:55